=== PATIENT | male | born 1975 | race Caucasian/White ===

== ENCOUNTER 2018-04-14 12:31 | Emergency (ER) | payer OTHER ==
--- NOTE | 2018-04-14 13:16 | UC ---
Throat Pain/Nasal Regino HPI - HPI Summary HPI Summary: 42 yo male presents with a dry cough and sinus congestion for 1 week. Last night his sinus pressure got much worse and his whole head feels congested. Has been taking ibuprofen OTC with mild relief. Denies fever, chills, sore throat, SOB, chest pain. - History of Current Complaint Stated Complaint: SINUSES Time Seen by Provider: 04/14/18 13:16 Hx Obtained From: Patient Onset/Duration: Gradual Onset Severity: Moderate Pain Intensity: 6 Pain Scale Used: 0-10 Numeric Cough: Nonproductive - Allergies/Home Medications Allergies/Adverse Reactions: Allergies Allergy/AdvReac Type Severity Reaction Status Date / Time No Known Allergies Allergy Verified 04/14/18 13:20 Home Medications: Home Medications Ibuprofen [Advil] 400 mg PO ONCE PRN 04/14/18 [History Confirmed 04/14/18] PMH/Surg Hx/FS Hx/Imm Hx - Additional Past Medical History Additional PMH: None Previously Healthy: Yes - Surgical History Surgical History: None - Family History Known Family History: Positive: None - Social History Occupation: Employed Full-time Lives: With Family Alcohol Use: Occasionally Substance Use Type: None Smoking Status (MU): Never Smoked Tobacco Review of Systems Constitutional: Negative Skin: Negative Eyes: Negative ENT: Nasal Discharge, Sinus Congestion, Sinus Pain/Tenderness Respiratory: Cough Cardiovascular: Negative Gastrointestinal: Negative Neurovascular: Negative Neurological: Negative Psychological: Negative All Other Systems Reviewed And Are Negative: Yes Physical Exam - Summary Physical Exam Summary: GENERAL: NAD. WDWN. No pain distress. SKIN: No rashes, sores, lesions, or open wounds. HEENT: Head: AT/NC Eyes: EOM intact. Conjunctiva clear without inflammation or discharge. Ears: Hearing grossly normal. TMs intact, no bulging, erythema, or edema. Nose: Nasal mucosa mildly swollen and erythematous with yellow discharge. TTP maxillary sinus. Throat: Posterior oropharynx without exudates, erythema, or tonsillar enlargement. Uvula midline. NECK: Supple. Nontender. No lymphadenopathy. CHEST: CTAB. No r/r/w. No accessory muscle use. Breathing comfortably and in no distress. CV: RRR. Without m/r/g. Pulses intact. Brisk cap refill. NEURO: Alert. CN II-XII grossly intact. PSYCH: Age appropriate behavior. Triage Information Reviewed: Yes Vital Signs: Vital Signs: Temp Pulse Resp BP Pulse Ox 99.4 F 73 15 122/70 100 04/14/18 13:13 04/14/18 13:13 04/14/18 13:13 04/14/18 13:13 04/14/18 13:13 Throat Pain/Nasal Course/Dx - Course Course Of Treatment: Sinusitis - Differential Dx/Diagnosis Provider Diagnoses: Sinusitis Discharge - Sign-Out/Discharge Documenting (check all that apply): Discharge/Admit/Transfer - Discharge Plan Condition: Stable Disposition: HOME Prescriptions: ceFUROXime TAB(*) [Ceftin TAB 250 MG(*)] 250 mg PO BID #14 tab Patient Education Materials: Sinusitis (ED) Referrals: Non Staff,Doctor [Primary Care Provider] - Additional Instructions: If you develop a fever, shortness of breath, chest pain, new or worsening symptoms - please call your PCP or go to the ED. - Billing Disposition and Condition Condition: STABLE Disposition: HOME
== END 2018-04-14 13:38 | disposition home or self-care (01) ==
LOC: UCCORT 12:31
DX: J32.9 Chronic sinusitis, unspecified (principal)
CPT/HCPCS: 99202; G0463